=== PATIENT | female | born 1955 | race Caucasian/White ===

== ENCOUNTER 2023-08-21 05:24 | Inpatient (IN) | payer MEDICARE, OTHER, SELFPAY ==
[2023-08-21] VITALS (9 sets, daily range): BP systolic 119–159; BP diastolic 63–97; PULSE 93; O2SAT 99; BMI 20.6; BMI 19.3; BMI 19.7
[2023-08-21] MEDS: ZOFRAN 4 MG IV ×2 (03:27→06:37)
[2023-08-21] MEDS: DILAUDID 0.5 MG IV (03:28)
[2023-08-21 03:41] LABS: % Basophils 0.8 % (0-2); % Eosinophils 0.8 % (0-6); % Immature Granulocytes 0.2 % (0-0.5); % Lymphocytes 48.3 % (20.5-51.1); % Monocytes 6.1 % (1.7-9.3); % Neutrophils 43.8 % (42.2-75.2); Absolute Basophils 0.1 10^3/uL (0-0.2); Absolute Eosinophils 0.1 10^3/uL (0-0.7); Absolute Lymphocytes 4.4 10^3/uL (1.2-3.4); Absolute Monocytes 0.6 10^3/uL (0.1-0.6); Hemoglobin 13.9 g/dL (12.0-16.0); Mean Corp Hgb Conc. 34.8 g/dL (33.0-37.0); Mean Corpuscular Hgb 30.4 pg (27.0-31.0); Mean Corpuscular Volume 87.5 fL (81.0-99.0); Mean Platelet Volume 10.7 fL (7.4-10.4); Nucleated Red Blood Cells % 0 %; Platelet Count 333 10^3/uL (130-400); Red Blood Cell Count 4.57 10^6/uL (4.20-5.40); White Blood Cell Count 9.1 10^3/uL (4.8-10.8)
--- NOTE | 2023-08-21 03:57 | ED.GENMED ---
History of Present Illness
General
Chief Complaint: Abdominal Symptoms
Time Seen by Provider: 08/21/23 03:16
Travel History
Have you had any contact with someone who has COVID-19?: No
Do you have any symptoms of coronavirus? Fever > 100 degrees, chills, cough, shortness of breath, sore throat, loss of taste or smell, muscle aches, or headache?: No
Past History
Past History
ED Past Medical History: HTN, Hypothyroidism and Other (Chronic fatigue syndrome, adrenal insufficiency)
Social History
Tobacco: Non-smoker
Alcohol: None
Drug: Marijuana
Personal:
Course
Orders/Labs/Results
Orders:
Orders
08/21/23 03:14
IV Insert/Care/Rem.- Treatment PRN
08/21/23 03:15
Urinalysis Reflex To Culture Urgent
Date Specimen was Collected: 08/21/23
Time Specimen was Collected: 03:15
08/21/23 03:21
HYDROmorphone [Dilaudid] 0.5 mg IV NOW STA
Ondansetron Injectable [Zofran] 4 mg IV NOW STA
CR Obstruct Series W/pa Chest Urgent
Comment:
Reason For Exam: left abd pain
08/21/23 03:26
Complete Blood Count/With Diff Urgent
Comprehensive Metabolic Panel Urgent
Lactate Level [Lactic Acid] Urgent
Lipase Urgent
Abnormal Lab Results
08/21/23
03:26
MPV 10.7 H fL
(7.4-10.4)
Absolute Lymphs (auto) 4.4 H 10^3/uL
(1.2-3.4)
08/21/23 03:26
Vital Signs
Initial and Last Documented VS:
Initial Vital Signs
Temp Pulse Resp BP Pulse Ox
97.7 F 85 20 146/83 99
08/21/23 03:05 08/21/23 03:05 08/21/23 03:05 08/21/23 03:05 08/21/23 03:05
Last Documented Vital Signs
Temp Pulse Resp BP Pulse Ox
97.7 F 85 20 143/71 100
08/21/23 03:05 08/21/23 03:05 08/21/23 03:05 08/21/23 03:17 08/21/23 03:33
ED Attending Note
-
Portions of this chart may have been created with voice recognition software.� Occasional wrong word or��sound alike� substitutions may have occurred due to the inherent limitations of voice recognition software.
Discharge Plan
Departure
Prescriptions:
No Action
valacyclovir [Valtrex] 1,000 MG tablet
500 mg PO DAILY
amlodipine 5 MG tablet
5 mg PO QPM
levothyroxine 75 MCG tablet
75 mcg PO DAILY
mupirocin 2 % ointment
1 applic topical BID Qty: 22 0RF
Referrals:
Will Rausch DO [Family Provider] -
Interventions
Interventions:
*General Assessment Last Done: 08/21/23 03:05
*Neglect/Abuse Screening Last Done: 08/21/23 03:05
ED- Fall Risk Assessment Last Done: 08/21/23 03:51
*ED COVID-19 Vaccine History Last Done: 08/21/23 03:05
SN-Toifdj-Kifstkyuyz Assessment Last Done: 08/21/23 03:48
--- NOTE | 2023-08-21 04:03 | ED.GENMED ---
History of Present Illness
<KATY Oakley - Last Filed: 08/21/23 04:43>
General
Chief Complaint: Abdominal Symptoms
Source: patient
Exam Limitations: clinical condition
Time Seen by Provider: 08/21/23 03:16
Nursing documentation reviewed up to this point in time: agreed with
Travel History
Have you had any contact with someone who has COVID-19?: No
Do you have any symptoms of coronavirus? Fever > 100 degrees, chills, cough, shortness of breath, sore throat, loss of taste or smell, muscle aches, or headache?: No
History of Present Illness
History of Present Illness:
67 y/o F presents to ED complaining of flank pain x weeks. Patient reports she has been having on and off flank pain for 1 week that was radiating down to her hips. She reports today the pain has been severe and constant in her left flank. Anny
rates the pain 9/10. She states the pain is radiating to her back. The pain is better with sitting up. She also reports feeling nausea today but did not vomit. She states she has chronic constipation but has not had a good BM in about 1 week.
Patient has not taken any medications for the pain. Denies vomiting, diarrhea, cough, congestion, SOB, chest pain, palpitations or bloody stool.
Past History
<KATY Oakley - Last Filed: 08/21/23 04:43>
Past History
ED Past Medical History: HTN, Hypothyroidism and Other (Chronic fatigue syndrome, adrenal insufficiency)
Social History
Tobacco: Non-smoker
Alcohol: None
Drug: Marijuana
Personal:
Review of Systems
<KATY Oakley - Last Filed: 08/21/23 04:43>
Review of Systems
Allergies reviewed?: Yes
All Other Systems: ROS reviewed and negative except as documented in HPI and ROS
Constitutional: Reports no symptoms
EENT: Reports no symptoms
Respiratory: Reports no symptoms
Cardiac: Reports no symptoms
ABD/GI: Reports abdominal pain, nausea and constipated
: Reports no symptoms
Musculoskeletal: Reports no symptoms
Skin: Reports no symptoms
Neurological: Reports no symptoms
Endocrine: Reports no symptoms
Hematologic/Lymphatic: Reports no symptoms
Psychiatric: Reports no symptoms
Phy Exam
<KATY Oakley - Last Filed: 08/21/23 04:43>
General Physical Exam
General Presentation: well appearing and moderate distress
General age: appears stated age
General Skin: warm and dry
General Habitus: normal
General Mental: alert
General Hydration: appears well hydrated
Cardiovascular Exam
Cardiovascular Exam: regular rate/rhythm, no edema, no gallop and no murmur
Pulmonary Exam
Pulmonary Exam: lungs clear, no respiratory distress, no rales, no crackles and no rhonchi
Gastrointestinal Exam
Gastrointestinal Exam: abnormal bowel sounds
Course
<KATY Oakley - Last Filed: 08/21/23 04:43>
Orders/Labs/Results
Orders:
Orders
08/21/23 03:14
IV Insert/Care/Rem.- Treatment PRN
08/21/23 03:15
Urinalysis Reflex To Culture Urgent
Date Specimen was Collected: 08/21/23
Time Specimen was Collected: 03:15
08/21/23 03:21
HYDROmorphone [Dilaudid] 0.5 mg IV NOW STA
Ondansetron Injectable [Zofran] 4 mg IV NOW STA
CR Obstruct Series W/pa Chest Urgent
Comment:
Reason For Exam: left abd pain
08/21/23 03:26
Complete Blood Count/With Diff Urgent
Comprehensive Metabolic Panel Urgent
Lactate Level [Lactic Acid] Urgent
Lipase Urgent
08/21/23 04:38
Add On- LAB Routine
Tests Added?: TSH reflex FT4
Abnormal Lab Results
08/21/23
03:26
MPV 10.7 H fL
(7.4-10.4)
Absolute Lymphs (auto) 4.4 H 10^3/uL
(1.2-3.4)
Chloride 108 H mmol/L
(98-107)
BUN 24 H mg/dl
(7-17)
Glucose 124 H mg/dl
(70-99)
Lactic Acid 2.1 H mmol/L
(0.7-2.0)
08/21/23 03:26
08/21/23 03:26
Vital Signs
Initial and Last Documented VS:
Initial Vital Signs
Temp Pulse Resp BP Pulse Ox
97.7 F 85 20 146/83 99
08/21/23 03:05 08/21/23 03:05 08/21/23 03:05 08/21/23 03:05 08/21/23 03:05
Last Documented Vital Signs
Temp Pulse Resp BP Pulse Ox
97.7 F 85 20 159/97 98
08/21/23 03:05 08/21/23 03:05 08/21/23 03:05 08/21/23 04:00 08/21/23 04:02
Angilt;Saurav Villa, DO - Last Filed: 08/21/23 04:37>
Orders/Labs/Results
Orders:
Orders
08/21/23 03:14
IV Insert/Care/Rem.- Treatment PRN
08/21/23 03:15
Urinalysis Reflex To Culture Urgent
Date Specimen was Collected: 08/21/23
Time Specimen was Collected: 03:15
08/21/23 03:21
HYDROmorphone [Dilaudid] 0.5 mg IV NOW STA
Ondansetron Injectable [Zofran] 4 mg IV NOW STA
CR Obstruct Series W/pa Chest Urgent
Comment:
Reason For Exam: left abd pain
08/21/23 03:26
Complete Blood Count/With Diff Urgent
Comprehensive Metabolic Panel Urgent
Lactate Level [Lactic Acid] Urgent
Lipase Urgent
08/21/23 04:38
Add On- LAB Routine
Tests Added?: TSH reflex FT4
Abnormal Lab Results
08/21/23
03:26
MPV 10.7 H fL
(7.4-10.4)
Absolute Lymphs (auto) 4.4 H 10^3/uL
(1.2-3.4)
Chloride 108 H mmol/L
(98-107)
BUN 24 H mg/dl
(7-17)
Glucose 124 H mg/dl
(70-99)
Lactic Acid 2.1 H mmol/L
(0.7-2.0)
08/21/23 03:26
08/21/23 03:26
Vital Signs
Initial and Last Documented VS:
Initial Vital Signs
Temp Pulse Resp BP Pulse Ox
97.7 F 85 20 146/83 99
08/21/23 03:05 08/21/23 03:05 08/21/23 03:05 08/21/23 03:05 08/21/23 03:05
Last Documented Vital Signs
Temp Pulse Resp BP Pulse Ox
97.7 F 85 20 159/97 98
08/21/23 03:05 08/21/23 03:05 08/21/23 03:05 08/21/23 04:00 08/21/23 04:02
<KATY Oakley - Last Filed: 08/21/23 04:43>
*Critical Care Note
Total Time (30-74mins, 75-104mins- exclusive of procedures): Not Applicable
ED Attending Note
<KATY Oakley - Last Filed: 08/21/23 04:43>
-
Portions of this chart may have been created with voice recognition software.� Occasional wrong word or��sound alike� substitutions may have occurred due to the inherent limitations of voice recognition software.
<Saurav Villa DO - Last Filed: 08/21/23 04:37>
ED Attending Note
Patient seen and examined by attending physician: Yes
I performed the substantive portion of visit, reviewed & personally made and approve the management plan that is documented in note by myself or STACY.: Yes
ED Attending Note:
This a pleasant 67-year-old female who presents with abdominal pain. Patient has a history of chronic constipation and is followed by [facility] physicians. Patient takes a multitude of supplements. She does have chronic fatigue
syndrome. Patient states that today's pain feels different than constipation. Denies fever, chills, nausea or vomiting. Patient states that the pain is mostly on the left side. Patient was seen in conjunction with the PA student. I have
reviewed and agree with the history and treatment plan presented. On my independent physical exam, patient is awake, alert, and oriented x3, moderate acute distress. Heart is regular rate and rhythm. Lungs clear to auscultation. Hyperactive
bowel sounds on the left side. Moves all 4 extremities.
Obstruction series shows mild small bowel obstruction.
Patient to be admitted to the hospitalist service.
Discharge Plan
Departure
Patient Disposition: Admit
Date of Disposition: 08/21/23
Time of Disposition: 04:35
Presentation/result/management discussed w/ accepting MD/DO: Hospitalist
Condition: Fair
Discharge Problem:
SBO (small bowel obstruction)
Prescriptions:
No Action
valacyclovir [Valtrex] 1,000 MG tablet
400 mg PO BID
amlodipine 5 MG tablet
5 mg PO QPM
levothyroxine 75 MCG tablet
88 mcg PO DAILY
mupirocin 2 % ointment
1 applic topical BID Qty: 22 0RF
lorazepam 0.5 mg Tablet
0.5 mg PO HS PRN (Reason: Sleep/Aniety)
lysine [L-Lysine] 500 mg Tablet
500 mg PO BID
zinc 50 mg Capsule
50 mg PO DAILY
ascorbic acid (vitamin C) [Vitamin C] 500 mg Capsule, Extended Release
500 mg PO TID
magnesium glycinate 100 mg Tablet
300 mg PO HS
Referrals:
Will Rausch DO [Family Provider] -
Interventions
Interventions:
*General Assessment Last Done: 08/21/23 03:05
*Neglect/Abuse Screening Last Done: 08/21/23 03:05
ED- Fall Risk Assessment Last Done: 08/21/23 03:51
*ED COVID-19 Vaccine History Last Done: 08/21/23 03:05
SO-Rmcxxt-Ruqwokhnjo Assessment Last Done: 08/21/23 03:48
[2023-08-21 04:15] LABS: Lactic Acid 2.1 mmol/L (0.7-2.0)
[2023-08-21 04:16] LABS: ALT (SGPT) 23 U/L (0-35); AST (SGOT) 30 U/L (14-36); Albumin 4.1 g/dl (3.5-5.0); Alkaline Phosphatase 65 U/L (38-126); Blood Urea Nitrogen 24 mg/dl (7-17); Calcium 9.7 mg/dl (8.4-10.2); Carbon Dioxide 24 mmol/L (22-30); Chloride 108 mmol/L (98-107); Estimated Creatinine Clearance 65 ml/min; Glucose 124 mg/dl (70-99); Lipase 254 U/L (23-300); Sodium 135 mmol/L (135-145); Total Bilirubin 0.9 mg/dl (0.2-1.3); Total Protein 6.4 g/dl (6.3-8.2); eGFR > 60.00
[2023-08-21 04:22] LABS: Potassium 3.9 mmol/L (3.5-5.1)
--- NOTE | 2023-08-21 04:34 | HPS.HSE ---
Family Physician
-
Family Physician: Will Rausch
Chief Complaint
-
L flank pain
History of Present Illness
HPI: 67 y/o F PMH HTN, Hypothyroidism, chronic fatigue syndrome; p/w severe L flank pain. Patient stated that her left flank pain started weeks ago.
She stated that she has been under a lot of stress lately and as a result felt constipated for several weeks.
She denies to significant abdominal pain, nausea or vomiting. Denies to other symptoms.
Medical History
Past Medical History
Past Medical History: Reports Other
Additional Past Medical History:
HTN
Hypothyroidism
chronic fatigue syndrome
Past Surgical History: Reports Gynocological (Hysterectomy) and Other
Additional Past Surgical History:
hemorrhoidectomy
Social History
Tobacco: Non-smoker
Alcohol: None
Drug: Marijuana
Personal: Partner
Family History
Family History: Not pertinent
Allergies / Home Medications
Allergies reflects when Allergies were last updated in [employer].
Home Medications with original date entered in [employer]
Allergy/Medication List:
Allergies
Allergy/AdvReac Type Severity Reaction Status Date / Time
Cephalosporins Allergy Unknown Verified 08/21/23 03:05
clotrimazole Allergy Unknown Verified 08/21/23 03:05
fluconazole Allergy Unknown Verified 08/21/23 03:05
itraconazole Allergy Unknown Verified 08/21/23 03:05
niacin Allergy Unknown Verified 08/21/23 03:05
penicillin V Allergy Unknown Verified 08/21/23 03:05
Penicillins Allergy Unknown Verified 08/21/23 03:05
IV CONTRAST Allergy Unknown Uncoded 08/21/23 03:05
Home Medications
amlodipine 5 mg tablet 5 mg PO QPM 12/24/17
levothyroxine 75 mcg tablet 88 mcg PO DAILY 12/24/17
valacyclovir 1 gram tablet (Valtrex) 400 mg PO BID 12/24/17
mupirocin 2 % topical ointment 1 applic topical BID #22 grams 03/24/23
ascorbic acid (vitamin C) 500 mg capsule,extended release (Vitamin C) 500 mg PO TID 08/21/23
lorazepam 0.5 mg tablet 0.5 mg PO HS PRN Sleep/Aniety 08/21/23
lysine 500 mg tablet (L-Lysine) 500 mg PO BID 08/21/23
magnesium glycinate 100 mg tablet 300 mg PO HS 08/21/23
zinc 50 mg capsule 50 mg PO DAILY 08/21/23
Review of Systems
-
: Reports Flank Pain (L flank pain)
Physical Exam
Vital Signs
Vital Signs
Temp Pulse Resp BP Pulse Ox
36.5 C 85 20 159/97 98
08/21/23 03:05 08/21/23 03:05 08/21/23 03:05 08/21/23 04:00 08/21/23 04:02
Physical Exam
General: Well Developed, Well Nourished, No Apparent Distress, Conversant and Pain
HEENT: NormoCephalic, Moist mucous membranes and Atraumatic
Respiratory: Clear and Non Labored Respirations; No Accessory Resp Muscle Use
Cardiac: S1/S2 and Regular Rhythm; No Murmur or Rub
GI: Soft, Non Tender, Non Distended and Normal Bowel Sounds; No Organomegaly
Rectal: Deferred by Provider
Genito-urinary: Other (L flank pain)
Musculoskeletal: No Clubbing, No Cyanosis and No Edema
Skin: No Rash
Neuro: Awake, Alert and Oriented
Psych: Calm and Intact Judgment/Insight
Laboratory Results
-
08/21/23 03:26
08/21/23 03:26
Laboratory Results
Lactic Acid 2.1 mmol/L (0.7-2.0) H 08/21/23 03:26
Total Bilirubin 0.9 mg/dl (0.2-1.3) 08/21/23 03:26
AST 30 U/L (14-36) 08/21/23 03:26
ALT 23 U/L (0-35) 08/21/23 03:26
Alkaline Phosphatase 65 U/L (38-126) 08/21/23 03:26
Lipase 254 U/L (23-300) 08/21/23 03:26
Data Reviewed
-
Lab Data: Labs Reviewed by me
Impression/Plan
-
HPI: 67 y/o F PMH HTN, Hypothyroidism, chronic fatigue syndrome; p/w severe L flank pain. Patient stated that her left flank pain started weeks ago.
She stated that she has been under a lot of stress lately and as a result felt constipated for several weeks.
She denies to significant abdominal pain, nausea or vomiting. Denies to other symptoms.
A/P:
# L flank pain
Check UA and treat accordingly
Check CT AP without contrast (patient is allergic to IV contrast and requests no oral contrast as well)
Pain control with IV morphine
# Possible SBO based on prelim AXR
Pt denies to significant abd pain
Follow AXR formal report
NPO with IVF
GS CS
Check CT AP without contrast (patient is allergic to IV contrast and requests no oral contrast as well)
# HTN
hold PO meds
IV hydralazine PRN
# Hypothyroidism
cont COLD ROLL P[employer] SHEET IRON Synthroid
Check TSH reflex FT4
# chronic fatigue syndrome
Patient states that she takes marijuana occasionally
Check UDS
DVT ppx: lovenox SQ
FC
[2023-08-21 05:06] LABS: Urine Albumin Negative (Neg - Trace); Urine Bilirubin Negative (Negative); Urine Character Slightly Cloudy (Clear); Urine Color Yellow; Urine Glucose Negative (Negative); Urine Ketone Trace (Negative); Urine Leukocyte Trace (Negative); Urine Nitrite Negative (Negative); Urine Occult Blood Negative (Negative); Urine Urobilinogen Negative (Neg - 1+)
[2023-08-21 05:22] LABS: Urine Bacteria Moderate (Negative); Urine Red Blood Cell 0-2 /HPF (0-2)
[2023-08-21 05:23] LABS: Urine Squamous Cell >30 /LPF (Few)
[2023-08-21 05:27] LABS: Amphetamines Negative (Negative); Barbiturates Negative (Negative); Benzodiazepines Negative (Negative); Buprenorphine Negative (Negative); Cocaine Negative (Negative); Marijuana Positive (Negative); Methadone Negative (Negative); Methamphetamines Negative (Negative); Opiates Positive (Negative); Phencyclidine Negative (Negative); Tricyclic Antidepressants Negative (Negative)
[2023-08-21 05:55] LABS: Fentanyl, Urine Negative (Negative)
[2023-08-21] MEDS: NSS 1000 IV (05:58)
[2023-08-21 06:12] LABS: TSH Reflex To Free T4 7.05 uIU/ml (0.47-4.68)
[2023-08-21 06:27] LABS: Hematocrit 39.5 % (37.0-47.0); Hemoglobin 13.2 g/dL (12.0-16.0); Mean Corp Hgb Conc. 33.4 g/dL (33.0-37.0); Mean Corpuscular Hgb 30.4 pg (27.0-31.0); Mean Platelet Volume 11.1 fL (7.4-10.4); Platelet Count 277 10^3/uL (130-400); Red Blood Cell Count 4.34 10^6/uL (4.20-5.40); Red Cell Dist. Width 11.8 % (11.5-14.5); White Blood Cell Count 15.7 10^3/uL (4.8-10.8)
[2023-08-21] MEDS: MORPHINE SULFATE 2 MG IV ×2 (06:37→16:38)
[2023-08-21 06:43] LABS: Free T4 1.57 ng/dl (0.78-2.19)
[2023-08-21 07:10] LABS: Blood Urea Nitrogen 23 mg/dl (7-17); Calcium 8.2 mg/dl (8.4-10.2); Carbon Dioxide 23 mmol/L (22-30); Chloride 110 mmol/L (98-107); Estimated Creatinine Clearance 65 ml/min; Glucose 131 mg/dl (70-99); Potassium 3.4 mmol/L (3.5-5.1); Sodium 137 mmol/L (135-145); eGFR > 60.00
--- NOTE | 2023-08-21 09:09 | PHANOTE ---
med rec note- patient using compound pharmacy called [facility] in [facility]
[2023-08-21] MEDS: LIDOCAINE 4% PATCH TOPICAL (09:42)
--- NOTE | 2023-08-21 10:13 | W.PN.HOSP.TC ---
Today's Communication/Plan
-
Antibiotics
Stop Narcs
Urology eval
Clears
Assessment / Plan
Assessment / Plan
Left flank pain started weeks ago. Patient states that has been constipated also. She uses natural remedies as well as some allopathic staff. states she has chronic fatigue syndrome
CT of the abdomen and pelvis without contrast-mild hydronephrosis of the left kidney with a left perinephric stranding. Findings may represent recently passed left sided stone. Mesenteric inflammatory change extends from the hilum of the left
kidney towards the root of the mesentery may represent left renal inflammatory process or mesenteric adenitis or mesenteric pancolitis. No inflammatory bowel processes appreciated. Cholelithiasis without evidence of acute cholecystitis.
On examination awake alert not in any acute distress
Cardiovascular system S1-S2 appreciated
Chest clear to auscultation
Abdomen bowel sounds are appreciated, left flank left lumbar area tenderness
# L flank pain
Start Antibiotics- Levaquin- Pt very particular about allergies.
Possibly could have passed a stone
Await urine culture
Follow white count
# Possible SBO based on prelim XRay
But CT with no mention
Start clears
# History of varicella-zoster infection recently completed acyclovir
# HTN
Continue Norvasc
# Hypothyroidism
Patient has not had any changes in her Synthroid dose therefore will increase to 100 mcg from 88 mcg
# Chronic fatigue syndrome
Patient states that she takes marijuana occasionally
# Anxiety-on lorazepam at bedtime as needed
PTSD
# Cholelithiasis
# DVT ppx: Lovenox SQ
# CODE STATUS full code
Discussed with nursing
Discussed with pharmacy
Anticipated Discharge: 24 - 48 hours
Subjective/Interval History
-
Date of Service: August 21, 2023
Objective Data
-
Labs:
Laboratory Results
08/21/23 08/21/23
03:26 06:04
WBC 9.1 15.7 H
Hgb 13.9 13.2
Hct 40.0 39.5
Plt Count 333 277
Sodium 135 137
Potassium 3.9 3.4 L
Chloride 108 H 110 H
Carbon Dioxide 24 23
BUN 24 H 23 H
Creatinine 0.7 0.7
Glucose 124 H 131 H
Calcium 9.7 8.2 L D
Total Bilirubin 0.9
AST 30
ALT 23
Alkaline Phosphatase 65
Vital Signs:
Vital Signs
Temp Pulse Resp BP Pulse Ox
98.3 F 90 20 143/79 100
08/21/23 09:29 08/21/23 09:29 08/21/23 09:29 08/21/23 09:29 08/21/23 09:29
[2023-08-21] MEDS: TORADOL 10 MG IV ×2 (10:45→18:12)
[2023-08-21] MEDS: SYNTHROID 100 MCG PO (10:45)
[2023-08-21] MEDS: LEVAQUIN 100 IV (10:45)
[2023-08-21] MEDS: KCL 260 MEQ IV (12:04)
--- NOTE | 2023-08-21 12:17 | CON.MD ---
Consultation - Medical
-
see dictated note
pt gets regular care with homeopath clinic in [place]
very remote hx of passed right sided stones
says she averages 1-2 UTi's per year
for one weeks has had generalized pain on left side- in back/hip and lower abd
constipated but no urinary sx's and no hematuria
admitted thru ER after episode last night of severe left flank and lower abd pain
with toradol pain is now controlled and localized to LLQ
ua +/ ct with very minimal left hydro/ ? partial SBO and nonspecific karen-nephric/inflammatory stranding- limited as pt reports iv contrast allergy
no sig cva or abd tenderness
plan
unsure of exact etiology of sx's
hydro is very minimal and other findings are non-specific
continue pain meds/levaquin and await ucx
if cx negative and pain persists- would check u/s and if any suspicion of hydro- pt would agree with MRI urography with [facility]
will follow
[2023-08-21] MEDS: TYLENOL 1000 MG PO (13:34)
[2023-08-21] MEDS: PROTONIX 40 MG PO (16:32)
[2023-08-21] MEDS: MORPHINE SULFATE IV ×2 (16:33→16:36)
--- NOTE | 2023-08-21 16:45 | PTCARENOTE ---
Patient admitted to unit--room 424. AAOx3, able to make needs known. VSS. Patient oriented to unit and call wall system. IVF infusing. Patient reports increased pain, MD notified, see MAR.
[2023-08-21] MEDS: LOVENOX SC (18:11)
[2023-08-21] MEDS: NORVASC 5 MG PO (18:12)
[2023-08-21] MEDS: NSS IV (19:33)
[2023-08-21] MEDS: MIRALAX 17 GRAMS PO (19:36)
[2023-08-21] MEDS: COLACE 100 MG PO (19:37)
[2023-08-22] MEDS: TORADOL 10 MG IV (00:16)
[2023-08-22] MEDS: SYNTHROID 100 MCG PO (06:04)
[2023-08-22 07:00] LABS: Hematocrit 37.1 % (37.0-47.0); Hemoglobin 12.8 g/dL (12.0-16.0); Mean Corp Hgb Conc. 34.5 g/dL (33.0-37.0); Mean Corpuscular Hgb 30.7 pg (27.0-31.0); Platelet Count 278 10^3/uL (130-400); Red Blood Cell Count 4.17 10^6/uL (4.20-5.40); Red Cell Dist. Width 12.1 % (11.5-14.5); White Blood Cell Count 7.6 10^3/uL (4.8-10.8)
[2023-08-22 07:15] VITALS: BP 118/64
[2023-08-22 07:38] LABS: Blood Urea Nitrogen 14 mg/dl (7-17); Calcium 9.5 mg/dl (8.4-10.2); Carbon Dioxide 24 mmol/L (22-30); Chloride 107 mmol/L (98-107); Estimated Creatinine Clearance 73 ml/min; Glucose 102 mg/dl (70-99); Magnesium 2.3 mg/dl (1.6-2.3); Potassium 4.5 mmol/L (3.5-5.1); Sodium 138 mmol/L (135-145); eGFR > 60.00
[2023-08-22] MEDS: MIRALAX 17 GRAMS PO (08:24)
[2023-08-22] MEDS: LIDOCAINE 4% PATCH TOPICAL ×2 (08:24→08:33)
[2023-08-22] MEDS: VITAMIN D3 (cholecalciferol) 125 MCG PO (08:25)
[2023-08-22] MEDS: COLACE 100 MG PO (08:25)
[2023-08-22] MEDS: PROTONIX 40 MG PO (08:25)
[2023-08-22] MEDS: TYLENOL 1000 MG PO (08:27)
[2023-08-22 08:33] VITALS: BP 118/64; PULSE 71; O2SAT 99
[2023-08-22] MEDS: LEVAQUIN 100 IV (10:49)
--- NOTE | 2023-08-22 11:58 | W.PN.URO.CBU ---
Today's Communication / Plan
-
continue antibx and pain management
Assessment / Plan
-
abd and flank pain
hydro on CT
still unsure of sx etiology
ucx contam or UTI- would continue levaquin for now
if pt is symptomatically improved tomorrow- would rec discharge with outpt course of levaquin and f/u to discuss imaging- if still in pain tomorow- would rec renal and bladder u/s to look for hydro/ureteral jet and if obstruction concern persists-
then discussion of MRI vs cysto and retrograde
will follow
Diagnosis
-
Date of Service: August 22, 2023
-
Patient Diagnosis:
abd and flank pain
Subjective
-
pt feels better today
still some LLQ pain controlled with toradol
all labs nl
ucx- contam
Objective
-
Vital Signs
Temp Pulse Resp BP Pulse Ox
97.5 F 71 16 118/64 99
08/22/23 07:15 08/22/23 07:15 08/22/23 07:15 08/22/23 07:15 08/22/23 07:15
Intake and Output
08/21/23 08/22/23 08/23/23
06:59 06:59 06:59
Intake Total 1020 / 1020
Balance 1020 / 1020
Intake:
Oral fluids 660 / 660
IV piggybacks 360 / 360
Other:
Number of approximated MODERATE 2
amounts of urine
Laboratory Results
08/22/23 06:07
08/22/23 06:07
Review of Systems
-
Constitutional: No Symptoms
Respiratory: No Symptoms
Cardiac: No Symptoms
Abdomen/GI: Abdominal Pain
: No Symptoms
Physical Exam
-
General - no acute distress
Abdomen - soft, non-tender
--- NOTE | 2023-08-22 14:53 | W.PN.HOSP.TC ---
Today's Communication/Plan
-
Repeat urine CX
Levaquin
If continuing to get better will discharge tomorrow
Assessment / Plan
Assessment / Plan
Left flank pain started weeks ago. Patient states that has been constipated also. She uses natural remedies as well as some allopathic staff. states she has chronic fatigue syndrome
CT of the abdomen and pelvis without contrast-mild hydronephrosis of the left kidney with a left perinephric stranding. Findings may represent recently passed left sided stone. Mesenteric inflammatory change extends from the hilum of the left
kidney towards the root of the mesentery may represent left renal inflammatory process or mesenteric adenitis or mesenteric pancolitis. No inflammatory bowel processes appreciated. Cholelithiasis without evidence of acute cholecystitis.
On examination awake alert not in any acute distress
Cardiovascular system S1-S2 appreciated
Chest clear to auscultation
Abdomen bowel sounds are appreciated, left flank left lumbar area tenderness, much better
# L flank pain
Continue- Levaquin- Pt very particular about allergies.
Possibly could have passed a stone and has a UTI
Fisrt culture contaminant
Repeat CX
White count better
Urology eval appreciated
# Possible SBO based on prelim XRay
But CT with no mention
Tolerating diet
# History of varicella-zoster infection recently completed acyclovir
# HTN
Continue Norvasc
# Hypothyroidism
Patient has not had any changes in her Synthroid dose therefore increased to 100 mcg from 88 mcg
# Chronic fatigue syndrome
Patient states that she takes marijuana occasionally
# Anxiety-on lorazepam at bedtime as needed
PTSD
# Cholelithiasis
# DVT ppx: Lovenox SQ
# CODE STATUS full code
Discussed with nursing
Anticipated Discharge: Within 24 hours
Subjective/Interval History
-
Date of Service: August 22, 2023
Objective Data
-
Labs:
Laboratory Results
02/15/24
06:07
WBC 7.6
Hgb 12.8
Hct 37.1
Plt Count 278
Sodium 138
Potassium 4.5 D
Chloride 107
Carbon Dioxide 24
BUN 14
Creatinine 0.6
Glucose 102 H
Calcium 9.5
Vital Signs:
Vital Signs
Temp Pulse Resp BP Pulse Ox
97.5 F 71 16 118/64 99
08/22/23 07:15 08/22/23 07:15 08/22/23 07:15 08/22/23 07:15 08/22/23 07:15
I&O
08/21/23 08/22/23 08/23/23
06:59 06:59 06:59
Intake Total 1020 / 1020
Balance 1020 / 1020
[2023-08-22 15:40] VITALS: BP 151/82
[2023-08-22 16:13] VITALS: BP 151/82
--- NOTE | 2023-08-22 16:40 | CM ---
met with patient at bedside.she lives with significant other adelina in [place] with no steps to enter.her bed and bath is on the frist level.patient is totally independent.she has no poa her pcp is dr sanya trejo and she uses [facility]
for her meds.patient is adm with left flank pain.she is on iv levaquin which has helped alleviate some of her pain.patient may have passed a stone and a uti.she has never had a vn nor been to rehab in past.patient will discharge home when stable
with no needs.
Plan: discharge home with no needs.
[2023-08-22] MEDS: LOVENOX SC (17:32)
[2023-08-22] MEDS: NORVASC 5 MG PO (17:33)
[2023-08-22] MEDS: COLACE PO (20:55)
[2023-08-22] MEDS: MILK OF MAGNESIA 30 ML PO (21:12)
[2023-08-22 23:15] VITALS: BP 143/80
[2023-08-23] MEDS: DULCOLAX 10 MG RECTAL (02:50)
[2023-08-23] MEDS: SYNTHROID 100 MCG PO (06:41)
[2023-08-23 08:16] LABS: Hematocrit 41.7 % (37.0-47.0); Hemoglobin 14.3 g/dL (12.0-16.0); Mean Corp Hgb Conc. 34.3 g/dL (33.0-37.0); Mean Corpuscular Hgb 30.3 pg (27.0-31.0); Mean Corpuscular Volume 88.3 fL (81.0-99.0); Mean Platelet Volume 10.8 fL (7.4-10.4); Platelet Count 325 10^3/uL (130-400); Red Blood Cell Count 4.72 10^6/uL (4.20-5.40); White Blood Cell Count 8.5 10^3/uL (4.8-10.8)
[2023-08-23 08:23] VITALS: BP 125/86
--- NOTE | 2023-08-23 08:46 | W.PN.URO.CBU ---
Today's Communication / Plan
-
bowel regimen
if discharged-outpt f/u with dr ballard
Assessment / Plan
-
abd and flank pain
hydro on CT- minimal
do not think any of pt's current sx's are gu related- mostly bowel
she believes if she could move her bowels- she would be ok and could be discharged
reviewed with pt and med team
would given day #3 of levaquin today- then stop
pt elects trial of mag citrate for constipation
if discharged- may call my office to schedule outpt f/u and discussion of imaging
if there is any concern of ongoing gu issue- would perform renal and bladder u/s to look for any residual hydro/jet and if this is abnl MRI with arthur urogram
Diagnosis
-
Date of Service: August 23, 2023
-
Patient Diagnosis:
abd and flank pain
Subjective
-
pt upset this am
she is not having any flank pain or sig voiding sx- discomfort is centered over left hip and lower abd
has not moved bowels and feels much of this is due to constipation- has been given miralax/MOM and supp without relief- says these dont generally work- nor does an enema- she does have some homeopathic remedies that are unavailable here
no fevers
labs nl
ucx showed mixed bacteria
Objective
-
Vital Signs
Temp Pulse Resp BP Pulse Ox
97.6 F 85 18 125/86 99
08/23/23 08:23 08/23/23 08:23 08/23/23 08:23 08/23/23 08:23 08/23/23 08:23
Intake and Output
08/22/23 08/23/23 08/24/23
06:59 06:59 06:59
Intake Total 1020 / 1020 800 / 800
Balance 1020 / 1020 800 / 800
Intake:
Oral fluids 660 / 660 700 / 700
IV piggybacks 360 / 360 100 / 100
Other:
Number of approximated MODERATE 2 2
amounts of urine
Number of approximated LARGE 5
amounts of urine
Laboratory Results
08/23/23 07:39
Physical Exam
-
General - no acute distress
[2023-08-23] MEDS: CITROMA 150 ML PO (08:53)
[2023-08-23] MEDS: LIDOCAINE 4% PATCH 1 PATCH TOPICAL (08:54)
[2023-08-23] MEDS: PROTONIX 40 MG PO (08:54)
[2023-08-23] MEDS: MIRALAX 17 GRAMS PO (08:54)
[2023-08-23] MEDS: COLACE 100 MG PO (08:54)
[2023-08-23] MEDS: ATIVAN 0.5 MG PO (08:54)
[2023-08-23 08:55] LABS: Blood Urea Nitrogen 13 mg/dl (7-17); Calcium 9.8 mg/dl (8.4-10.2); Carbon Dioxide 24 mmol/L (22-30); Chloride 105 mmol/L (98-107); Estimated Creatinine Clearance 73 ml/min; Glucose 110 mg/dl (70-99); Potassium 4.2 mmol/L (3.5-5.1); Sodium 136 mmol/L (135-145); eGFR > 60.00
[2023-08-23] MEDS: VITAMIN D3 (cholecalciferol) 125 MCG PO (08:55)
[2023-08-23] MEDS: LEVAQUIN 100 IV (08:55)
[2023-08-23 14:41] VITALS: BP 141/87; PULSE 72; O2SAT 100
--- NOTE | 2023-08-23 15:31 | W.PN.HOSP.TC ---
Addendum entered and electronically signed by Alejandro Sebastian MD 08/23/23 15:35:
Follow-up care discussed with the patient
Patient was very appreciative and Thankful of all her care here.
Original Note:
Today's Communication/Plan
-
Discharge
Assessment / Plan
Assessment / Plan
Left flank pain started weeks ago. Patient states that has been constipated also. She uses natural remedies as well as some allopathic staff. states she has chronic fatigue syndrome
CT of the abdomen and pelvis without contrast-mild hydronephrosis of the left kidney with a left perinephric stranding. Findings may represent recently passed left sided stone. Mesenteric inflammatory change extends from the hilum of the left
kidney towards the root of the mesentery may represent left renal inflammatory process or mesenteric adenitis or mesenteric pancolitis. No inflammatory bowel processes appreciated. Cholelithiasis without evidence of acute cholecystitis.
On examination awake alert not in any acute distress
Cardiovascular system S1-S2 appreciated
Chest clear to auscultation
Abdomen bowel sounds are appreciated, non tender
# L flank pain
Improved
Levaquin completed 3 days for cystitis cultures negative
Possibly could have passed a stone and has a UTI
First culture contaminant
Repeat CX
White count better
Urology eval appreciated
Okay for discharge with outpatient follow-up
# Possible SBO based on prelim XRay
But CT with no mention
Tolerating diet
# Constipation resolved had good bowel movements.
# History of varicella-zoster infection recently completed acyclovir
# HTN
Continue Norvasc
# Hypothyroidism
Patient has not had any changes in her Synthroid dose therefore increased to 100 mcg from 88 mcg
# Chronic fatigue syndrome
Patient states that she takes marijuana occasionally
Advised to stop and she is willing to stop.
# Anxiety-on lorazepam at bedtime as needed
PTSD
# Cholelithiasis
# DVT ppx: Lovenox SQ
# CODE STATUS full code
Discussed with nursing
Discussed with urology earlier today
Patient is requesting Protonix as she felt much better with this.
Anticipated Discharge: Today
Subjective/Interval History
-
Date of Service: August 23, 2023
Objective Data
-
Labs:
Laboratory Results
08/23/23
07:39
WBC 8.5
Hgb 14.3
Hct 41.7
Plt Count 325
Sodium 136
Potassium 4.2
Chloride 105
Carbon Dioxide 24
BUN 13
Creatinine 0.6
Glucose 110 H
Calcium 9.8
Vital Signs:
Vital Signs
Temp Pulse Resp BP Pulse Ox
97.6 F 85 18 125/86 99
08/23/23 08:23 08/23/23 08:23 08/23/23 08:23 08/23/23 08:23 08/23/23 08:23
I&O
08/22/23 08/23/23 08/24/23
06:59 06:59 06:59
Intake Total 1020 / 1020 800 / 800
Balance 1020 / 1020 800 / 800
--- NOTE | 2023-08-23 15:33 | W.DS.TRANS ---
Addendum entered and electronically signed by Alejandro Sebastian MD 08/23/23 16:26:
Dictation- [id number]
Original Note:
DC Summary - Manager Pricing
-
Discharge Instructions:
Discharge Diagnosis/Procedures Pain, constipation, hypertension, hypothyroidism
, chronic fatigue syndrome, anxiety, gallstones
Diet As tolerated
Activity As tolerated
Driving Restrictions As prior to admission
Blood Work Thyroid function tests in 6 weeks
Instructions:
Stand-Alone Forms:
Changes to Home Medications: Yes
Discharge Medications:
DC Medications w/original date entered in [employer]
amlodipine 5 mg tablet 5 mg PO QPM Blood Pressure 12/24/17
Biestrogen Progesterone 1 g topical BID Supplement 08/21/23
Oxytocin Compound 268 g vaginal DAILY Supplement 08/21/23
Pregnenalone 60 mg PO QPM Supplement 08/21/23
cholecalciferol (vitamin D3) 125 mcg (5,000 unit) tablet (Vitamin D3) 125 mcg PO DAILY Supplement 08/21/23
digestive enzymes 1 cap PO DAILY Gastrointestinal Issue 08/21/23
lorazepam 0.5 mg tablet 0.5 mg PO HS PRN Sleep/Aniety 08/21/23
prasterone (dhea) 25 mg tablet (DHEA) 25 mg PO DAILY Supplement 08/21/23
simethicone 125 mg chewable tablet (Gas-X Extra Strength) 125 mg PO QID PRN gas pains 08/21/23
vitamin B complex 1 tab PO DAILY Supplement 08/21/23
docusate sodium 100 mg capsule 100 mg PO BID Constipation #0 caps 08/23/23
levothyroxine 100 mcg tablet 100 mcg PO DAILY@0700 #30 tabs 08/23/23
pantoprazole 40 mg tablet,delayed release 40 mg PO DAILY Gastrointestinal issue #15 tabs 08/23/23
polyethylene glycol 3350 17 gram oral powder packet (HealthyLax) 17 g PO DAILY Constipation #0 ea 08/23/23
Home Medication Changes
New medicines Protonix, MiraLAX
Dose change Synthroid increased to 100 mcg from 88
Pending Results: No
--- NOTE | 2023-08-23 15:52 | CM ---
Patient for d/c home today.
No home care needs.
IMM reviewed.
Plan: home no needs.
[2023-08-23] MEDS: LOVENOX 40 MG SC (17:02)
[2023-08-23] MEDS: NORVASC 5 MG PO (17:02)
--- NOTE | 2023-08-23 18:29 | PTCARENOTE ---
Pt DC'd to home. Pt given DC instructions and verbalized understanding.
== END 2023-08-23 18:17 | disposition home or self-care (01) | DRG 392 ==
LOC: 4 WEST ACU 05:24
PROVIDERS: ADMITTING PHYSICIAN Internal Medicine; ATTENDING PHYSICIAN Hospitalist; CONSULT PHYSICIAN Specialist; EMERGENCY PHYSICIAN Student in an Organized Health Care Education/Training Program; FAMILY PHYSICIAN Family Medicine
DX: R10.9 Unspecified abdominal pain (principal); N13.30 Unspecified hydronephrosis; N13.6 Pyonephrosis; I10 Essential (primary) hypertension; E03.9 Hypothyroidism, unspecified; F41.9 Anxiety disorder, unspecified; F43.10 Post-traumatic stress disorder, unspecified; G93.32 Myalgic encephalomyelitis/chronic fatigue syndrome; K80.20 Calculus of gallbladder without cholecystitis without obstruction
CPT/HCPCS: 74022; 74176; 80048; 80053; 80306; 80307; 81003; 81015; 83605; 83690; 83735; 84439; 84443; 85025; 85027; 87086; 93005; 96361; 96374; 96375; 97116; 97162; 97166; 99285

== ENCOUNTER 2023-12-18 21:46 | Emergency (ER) | payer MEDICARE, OTHER, SELFPAY ==
[2023-12-18 21:47] VITALS: BP 159/87
--- NOTE | 2023-12-18 22:39 | ED.SKININJ ---
HPI-Injury
<KATY Sun - Last Filed: 12/19/23 05:53>
General
Chief Complaint: Bite
Source: patient
Exam Limitations: none
Time Seen by Provider: 12/18/23 22:16
Travel History
Have you had any contact with someone who has COVID-19?: No
Do you have any symptoms of coronavirus? Fever > 100 degrees, chills, cough, shortness of breath, sore throat, loss of taste or smell, muscle aches, or headache?: No
History of Present Illness-Injury
Initial Injury comments:
68 YO F with PMH of chronic fatigue and inflammatory bowel syndrome presents to the ED today after she was bit by her dog 1 hour ago. She states she accidentally stepped on her dog's paw, which startled her dog and caused him to bite her. She has
two bite alonzo on the inner surface of her right forearm. One danielle is an elliptical shape, about 1/2 inch wide. The wound is superficial. The other danielle is a few inches below and is much smaller. She has bruising surrounding both wounds. She states
her pain is about a 5/10. She reports she is in more shock than pain. She states she has full mobility of her right arm. She has also been complaining of on-going left hip pain. She plans on making an appointment. Denies fever or chills. Denies
numbness and tingling.
Past History
<KATY Sun - Last Filed: 12/19/23 05:53>
Past History
ED Past Medical History: HTN, Hypothyroidism and Other (Chronic fatigue syndrome, adrenal insufficiency)
Social History
Tobacco: Non-smoker
Alcohol: None
Drug: Marijuana
Personal:
Review of Systems
<KATY Sun - Last Filed: 12/19/23 05:53>
Review of Systems
Allergies reviewed?: Yes
Constitutional: Reports no symptoms
EENT: Reports no symptoms
Respiratory: Reports no symptoms
Cardiac: Reports no symptoms
ABD/GI: Reports constipated
: Reports no symptoms
Musculoskeletal: Reports other (Left hip pain, seeing her doctor this Saturday)
Neurological: Reports no symptoms
Phy Exam
<KATY Sun - Last Filed: 12/19/23 05:53>
Physical Exam
Physical Exam:
+Ecchymosis noted surrounding two wounds
+Two elliptical wounds noted, one larger wound, and one smaller wound
Course
<KATY Sun - Last Filed: 12/19/23 05:53>
Orders/Labs/Results
Orders:
Orders
12/18/23 22:38
Tetanus/Diphth/Acelpertussis [Adacel] 0.5 ml IM .ONCE ONE
12/18/23 22:56
Doxycycline [Vibramycin] 100 mg PO NOW STA
Vital Signs
Initial and Last Documented VS:
Initial Vital Signs
Temp Pulse Resp BP Pulse Ox
97.9 F 95 18 159/87 99
12/18/23 21:47 12/18/23 21:47 12/18/23 21:47 12/18/23 21:47 12/18/23 21:47
Last Documented Vital Signs
Temp Pulse Resp BP Pulse Ox
97.9 F 95 18 159/87 99
12/18/23 21:47 12/18/23 21:47 12/18/23 21:47 12/18/23 21:47 12/18/23 21:47
<Neelima Castrejon DO - Last Filed: 12/18/23 23:30>
Orders/Labs/Results
Orders:
Orders
12/18/23 22:38
Tetanus/Diphth/Acelpertussis [Adacel] 0.5 ml IM .ONCE ONE
12/18/23 22:56
Doxycycline [Vibramycin] 100 mg PO NOW STA
Vital Signs
Initial and Last Documented VS:
Initial Vital Signs
Temp Pulse Resp BP Pulse Ox
97.9 F 95 18 159/87 99
12/18/23 21:47 12/18/23 21:47 12/18/23 21:47 12/18/23 21:47 12/18/23 21:47
Last Documented Vital Signs
Temp Pulse Resp BP Pulse Ox
97.9 F 95 18 159/87 99
12/18/23 21:47 12/18/23 21:47 12/18/23 21:47 12/18/23 21:47 12/18/23 21:47
Procedures
<KATY Sun - Last Filed: 12/19/23 05:53>
Laceration Closure
Right Upper Anterior Medial Proximal Arm:
Status of Wound: bite
Size of Wound in cm: 2
Description of Wound Edges: surrounded by abrasion
Preparation: cleaned with saline
Type of Closure: Dermabond-skin glue
<KATY Sun - Last Filed: 12/19/23 05:53>
MDM/Problems Addressed
Differential Diagnosis Includes:
Wound infection from dog bite wound, Cellulitis
MDM/Problems Addressed:
Dog bite x 1 hour
<KATY Sun - Last Filed: 12/19/23 05:53>
*Critical Care Note
Total Time (30-74mins, 75-104mins- exclusive of procedures): Not Applicable
<Neelima Castrejon DO - Last Filed: 12/18/23 23:30>
*Pulse Oximetry
Patient hypoxic: no
ED Attending Note
<KATY Sun - Last Filed: 12/19/23 05:53>
-
Portions of this chart may have been created with voice recognition software.� Occasional wrong word or��sound alike� substitutions may have occurred due to the inherent limitations of voice recognition software.
<Neelima Castrejon DO - Last Filed: 12/18/23 23:30>
ED Attending Note
Patient seen and examined by attending physician: Yes
I performed the substantive portion of visit, reviewed & personally made and approve the management plan that is documented in note by myself or STACY.: Yes
I performed a history and physical exam of patient and discussed management with resident, I reviewed resident's note and agree with documented findings and plan of care.: Yes
ED Attending Note:
This is a 68-year-old woman with history of chronic fatigue syndrome, chronic constipation who states she inadvertently stepped on her sleeping dog, the dog became startled jumped up and bit her right upper arm.
Her dog is never bitten before but admits that her dog became startled tonight and the dog is getting up and age. Dog is up-to-date with immunizations including up-to-date with rabies vaccine.
Patient complains of 2 lacerations right upper arm with mild local ache. No active bleeding. Although inadvertently stepped on the dog she denies tripping or falling.
She is unsure as to her last Tdap believes this was many years ago.
She does admit to chronic constipation, follows with a holistic physician and was briefly hospitalized here in August due to abdominal pain, left hip pain and CAT scan concerning for partial small bowel obstruction which was ruled out and found to
be related to constipation.
Patient admits that she has trialed various different supplements and fiber and laxatives for her constipation without consistent success. She has had some intermittent lower abdominal discomfort but denies pain along with some chronic left hip
pain. Hip pain is aggravated, worsened when she is feeling constipated. She has had no UTI symptoms, no fevers or chills. She did pass a soft small stool earlier today.
She has had no nausea or vomiting, no fever no chills.
She also notes some chronic asymmetry of her upper chest wall which she attributes to a right pectoralis muscle injury while performing heavy lifting. She has been following with her PCP and admits that right chest wall pain has resolved but she
admits to occasional sharp, stabbing, tingling, brief discomfort right upper chest wall, right lateral breast more so when lifting with right arm.
GENERAL: Alert , in no apparent distress. 68-year-old woman appears somewhat younger than stated age, bright and alert, pleasant, easily communicative and in no acute distress. is accompanying.
EYE: anicteric. The head is normocephalic, atraumatic.
NECK: Supple, nontender, no meningismus, no significant adenopathy.
ENT: oral mucosa is moist. No rhinorrhea.
CARDIAC: Regular rate and rhythm. no murmur.
LUNGS: Clear breath sounds bilaterally, no acute respiratory distress, no wheezes/rales/rhonchi. Right breast has no palpable tenderness, no palpable masses, no axillary adenopathy. There is very minimal asymmetry of upper chest with lack/atrophy
of right upper pectoralis musculature compared to the left pectoralis.
ABDOMEN: Soft, nondistended, without focal tenderness, mild palpable firm stool left lower quadrant, no r/g, no cvat. normoactive BS.
NEUROLOGICAL: Alert and oriented x3, no focal neuro deficits. Gait is sue and steady.
SKIN: Warm and dry, normal color, no rash.
The right upper anterior arm has 2 horizontal lacerations. Superior laceration is 2 cm in length, subcutaneous in depth, no active bleeding. Just below this is a 1 cm horizontal laceration, superficial subcutaneous in depth. No active bleeding.
There is mild surrounding streaky ecchymosis. No erythema, no soft tissue swelling. Minimal local tenderness to palpation. There is full elbow, shoulder range of motion without difficulty nor pain.
MUSCULOSKELETAL: No C/C/E. peripheral pulses are full and equal b/l.
PSYCH: Normal and appropriate interaction.
Patient presents with dog bite to the right upper arm.
Lacerations are subcutaneous in depth will require repair with Dermabond.
Wounds have been extensively irrigated with normal saline solution. No evidence of foreign body nor muscular involvement.
Will give Tdap and initiate short course of doxycycline for infection prevention.
We also discussed patient's ongoing issues with chronic constipation. Overall exam is benign without significant stool burden.
Recommend a daily regimen of fiber supplement and MiraLAX and to continue this on a daily basis.
Discussed routine wound care.
Prompt follow-up with PCP for recheck.
Discharge Plan
Departure
Patient Disposition: Home (Routine Discharge)
Date of Disposition: 12/18/23
Time of Disposition: 23:09
Patient with high blood pressure during this ER visit?: No
Condition: Good
Discharge Problem:
Open wound of right upper arm due to dog bite, Chronic constipation
Instructions: Animal and human bites, Tdap vaccine, Laceration Repair With Glue ED
Prescriptions:
New
doxycycline monohydrate 100 mg capsule
100 mg PO BID Qty: 14 1RF
No Action
amlodipine 5 MG tablet
5 mg PO QPM
lorazepam 0.5 mg Tablet
0.5 mg PO HS PRN (Reason: Sleep/Aniety)
digestive enzymes Capsule
1 cap PO DAILY
prasterone (dhea) [DHEA] 25 mg Tablet
25 mg PO DAILY
vitamin B complex Tablet
1 tab PO DAILY
simethicone [Gas-X Extra Strength] 125 mg Tablet,Chewable
125 mg PO QID PRN (Reason: gas pains)
cholecalciferol (vitamin D3) [Vitamin D3] 125 mcg (5,000 unit) Tablet
125 mcg PO DAILY
Biestrogen Progesterone
1 g topical BID
Rx Instructions:
1.5mg/50mg
Oxytocin Compound
268 g vaginal DAILY
Pregnenalone
60 mg PO QPM
polyethylene glycol 3350 [HealthyLax] 17 gram Powder In Packet
17 g PO DAILY Qty: 0 0RF
docusate sodium 100 mg Capsule
100 mg PO BID Qty: 0 0RF
levothyroxine 100 mcg Tablet
100 mcg PO DAILY@0700 Qty: 30 0RF
pantoprazole 40 mg Tablet,Delayed Release (Dr/Ec)
40 mg PO DAILY Qty: 15 0RF
Referrals:
Will Rausch DO [Family Provider] - Call in 1-3 days for appt
Activity Restrictions/Additional Instructions:
Keep glued wounds clean and dry. You can apply an occlusive bandage or cellophane wrap around the upper arm when showering.
For chronic constipation I want you to start daily fiber supplement such as Metamucil which comes orange flavored, 2 rounded teaspoons in 8 ounces of water. Along with this you can add 1 capful of orange flavored MiraLAX. Try to be consistent and
do this on a daily basis.
Continue healthy diet consuming fiber rich foods and stay well-hydrated on a daily basis.
You have been prescribed doxycycline, an antibiotic to be taken twice daily to help prevent infection. Avoid sun exposure while on doxycycline.
Follow-up with your family doctor for wound recheck this week or next week.
Interventions
Interventions:
*Risk Screen - Suicide Last Done: 12/18/23 21:47
*General Assessment Last Done: 12/18/23 21:47
*Neglect/Abuse Screening Last Done: 12/18/23 21:47
*Nursing Disposition Last Done: 12/18/23 23:28
ED-Skin Assessment Last Done: 12/18/23 22:12
Discharge Date and Time
Discharge Date/Time: 12/18/23 23:28
Print Language: MALTESE
[2023-12-18] MEDS: VIBRAMYCIN 100 MG PO (23:02)
[2023-12-18] MEDS: ADACEL 0.5 ML IM (23:03)
== END 2023-12-18 23:28 | disposition home or self-care (01) ==
LOC: EMR 21:46
PROVIDERS: EMERGENCY PHYSICIAN Emergency Medicine; FAMILY PHYSICIAN Family Medicine
DX: S41.151A Open bite of right upper arm, initial encounter (principal); W54.0XXA Bitten by dog, initial encounter; I10 Essential (primary) hypertension; E03.9 Hypothyroidism, unspecified; E27.40 Unspecified adrenocortical insufficiency; K59.09 Other constipation; N64.89 Other specified disorders of breast; Z23 Encounter for immunization
CPT/HCPCS: 99282; 12001; 90471; 90715